=== PATIENT | male | born 1975 | race American Indian/Alaskan Native ===

== ENCOUNTER 2016-07-06 07:43 | Emergency (ER) | payer MEDICARE ==
[2016-07-06 07:52] VITALS: BP 125/79
--- NOTE | 2016-07-06 08:50 | Emergency Department Report ---
ED General Adult HPI - General Chief complaint: Medical Clearance Stated complaint: MED REFILL Time Seen by Provider: 07/06/16 08:38 Source: patient Mode of arrival: Ambulatory Limitations: No Limitations - History of Present Illness Initial comments: PT states he ran out of his Keppra over the weekend. PT states today will be his second day with out his medication. PT states he went to the pharmacy but was told he has no refills. PT states he recently moved back to the area and he has not set up an appointment with Neuro. PT states he has been on Keppra for 2 years to prevent him from having SZ sp brain surgery. PT states he has never had a SZ MD Complaint: medicall refill -: Sudden (suddenly ran out of Keppra ) Severity scale (0 -10): 0 Associated Symptoms: denies other symptoms Treatments Prior to Arrival: other (pt tried going to the pharmacy for refill ) - Related Data Previous Rx's Medication Instructions Recorded Last Taken Type ALPRAZolam [Xanax TAB] 0.5 mg PO Q12H #30 tablet 01/16/15 Unknown Rx Lisinopril/Hydrochlorothiazide 1 each PO DAILY #30 tablet 01/16/15 Unknown Rx [Zestoretic 20-12.5 mg] Cetirizine HCl [ZyrTEC] 10 mg PO QDAY #14 capsule 04/16/16 Unknown Rx Fluticasone [Flonase] 1 spray NS QDAY #1 bottle 04/16/16 Unknown Rx levETIRAcetam [Keppra TAB] 750 mg PO BID #60 tablet 07/06/16 Unknown Rx Allergies Allergy/AdvReac Type Severity Reaction Status Date / Time No Known Allergies Allergy Verified 04/16/16 07:30 ED Review of Systems ROS: Stated complaint: MED REFILL Other details as noted in HPI Comment: All other systems reviewed and negative Constitutional: denies: chills, fever, malaise Gastrointestinal: denies: abdominal pain, nausea, vomiting Neurological: as per HPI. denies: headache, weakness, numbness, paresthesias, abnormal gait ED Past Medical Hx - Past Medical History Previous Medical History?: Yes Hx Hypertension: Yes Hx Congestive Heart Failure: No Hx Diabetes: No Hx GERD: Yes Hx Renal Disease: No Hx Headaches / Migraines: Yes Hx Seizures: No (On antiseizure meds but no h/o seizures) Hx Asthma: No Hx COPD: Yes (History of Bronchitis. 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) - Social History Smoking Status: Current Every Day Smoker Substance Use Type: Prescribed - Medications Home Medications: Home Medications Medication Instructions Recorded Confirmed Last Taken Type ALPRAZolam [Xanax TAB] 0.5 mg PO Q12H #30 tablet 01/16/15 Unknown Rx Lisinopril/Hydrochlorothiazide 1 each PO DAILY #30 tablet 01/16/15 Unknown Rx [Zestoretic 20-12.5 mg] Cetirizine HCl [ZyrTEC] 10 mg PO QDAY #14 capsule 04/16/16 Unknown Rx Fluticasone [Flonase] 1 spray NS QDAY #1 bottle 04/16/16 Unknown Rx levETIRAcetam [Keppra TAB] 750 mg PO BID #60 tablet 07/06/16 Unknown Rx ED Physical Exam - General Limitations: No Limitations General appearance: alert, in no apparent distress - Head Head exam: Present: atraumatic, normocephalic, normal inspection - Eye Eye exam: Present: normal appearance, EOMI. Absent: conjunctival injection - ENT ENT exam: Present: normal exam, normal external ear exam - Neck Neck exam: Present: normal inspection, full ROM - Respiratory Respiratory exam: Present: normal lung sounds bilaterally. Absent: respiratory distress, wheezes - Cardiovascular Cardiovascular Exam: Present: regular rate, normal rhythm, normal heart sounds - Extremities Exam Extremities exam: Present: normal inspection, full ROM - Back Exam Back exam: Present: normal inspection, full ROM. Absent: tenderness, CVA tenderness (R), CVA tenderness (L), muscle spasm - Neurological Exam Neurological exam: Present: alert, oriented X3, CN II-XII intact, normal gait - Psychiatric Psychiatric exam: Present: normal affect, normal mood - Skin Skin exam: Present: warm, dry, intact, normal color. Absent: rash ED Course Vital Signs 07/06/16 07:49 Temperature 98.3 F Pulse Rate 73 Respiratory 18 Rate Blood Pressure 125/79 O2 Sat by Pulse 98 Oximetry - Reevaluation(s) Reevaluation #1: 07/06/16 08:51 PT aware he will need to follow up with Neuro. PT has no questions at this time. - Pulse Oximetry Interpretation Digit-Finger Initial Pulse Oximetry Readin Actions Taken: none ED Medical Decision Making - Differential Diagnosis SZ, medication refill Critical Care Time: No Critical care attestation.: If time is entered above; I have spent that time in minutes in the direct care of this critically ill patient, excluding procedure time. ED Disposition Clinical Impression: Medication refill Disposition: DISCHARGED TO HOME OR SELFCARE Is pt being admited?: No Does the pt Need Aspirin: No Condition: Stable Instructions: Levetiracetam (By mouth) Additional Instructions: Follow up with neurologist of neurosurgeon in 2-3 days Prescriptions: levETIRAcetam [Keppra TAB] 750 mg PO BID #60 tablet Referrals: PRIMARY MD GEO [Primary Care Provider] - 3-5 Days KATIE GUERRERO MD [Staff Physician] - 3-5 Days Forms: Work/School Release Form(ED) Time of Disposition: 08:52
== END 2016-07-06 08:58 | disposition home or self-care (01) ==
LOC: ED 07:43
DX: Z76.0 Encounter for issue of repeat prescription (principal); I10 Essential (primary) hypertension; K21.9 Gastro-esophageal reflux disease without esophagitis; F17.200 Nicotine dependence, unspecified, uncomplicated
CPT/HCPCS: 99282